=== PATIENT | female | born 2000 | race Caucasian/White ===

== ENCOUNTER 2025-08-12 09:28 | Emergency (ER) | payer OTHER ==
[~2025-08-12] VITALS: Ht 162.6 cm; Wt 83.0 kg
[2025-08-12 09:36] VITALS: BP 102/62; PULSE 84; RESP 18; TEMP 97.7; O2SAT 100
[2025-08-12] MEDS ORDERED: ACET-66 PO (11:29)
[2025-08-12] MEDS ORDERED: HYDR-4062 PO (11:29)
[2025-08-12] MEDS ORDERED: BACL10TA PO (11:29)
== END 2025-08-12 11:40 | disposition home or self-care (01) ==
LOC: EMS 09:34
DX: S86.812A Strain of other muscle(s) and tendon(s) at lower leg level, left leg, initial encounter (principal); F17.210 Nicotine dependence, cigarettes, uncomplicated; Z90.49 Acquired absence of other specified parts of digestive tract; Z79.899 Other long term (current) drug therapy; X58.XXXA Exposure to other specified factors, initial encounter; Y93.89 Activity, other specified; Y92.89 Other specified places as the place of occurrence of the external cause; Y99.8 Other external cause status
CPT/HCPCS: 29505; 99283